=== PATIENT | male | born 1960 | race African-American/Black ===

== ENCOUNTER 2019-06-05 06:57 | Emergency (ER) | payer BC, OTHER ==
[~2019-06-05] VITALS: Ht 193 cm; Wt 124.7 kg
[2019-06-05 07:42] VITALS: BP 154/93
[2019-06-05] MEDS ORDERED: IBUPROFEN 800 MG TAB PO ONE (08:00)
== END 2019-06-05 08:14 | disposition home or self-care (01) ==
LOC: ER 06:57
DX: M25.522 Pain in left elbow (principal); F17.210 Nicotine dependence, cigarettes, uncomplicated; E66.9 Obesity, unspecified; Z68.33 Body mass index [BMI] 33.0-33.9, adult
CPT/HCPCS: 73080